=== PATIENT | female | born 1980 | race Two or more races ===

== ENCOUNTER 2019-05-30 07:50 | Outpatient (CLI) | payer OTHER | END 2019-05-30 08:13 | disposition home or self-care (01) | LOC: LAB 07:50 | DX: I10 Essential (primary) hypertension (principal); E55.9 Vitamin D deficiency, unspecified; D50.8 Other iron deficiency anemias; Z72.51 High risk heterosexual behavior; Z11.4 Encounter for screening for human immunodeficiency virus [HIV] ==

== ENCOUNTER 2021-05-31 21:06 | Emergency (ER) | payer OTHER ==
[~2021-05-31] VITALS: Ht 167.6 cm; Wt 64.9 kg
[2021-05-31] MEDS ORDERED: MACRODANTIN100 M1 PO (23:03)
== END 2021-06-01 01:38 | disposition home or self-care (01) ==
LOC: ER 21:06
DX: N39.0 Urinary tract infection, site not specified (principal)